=== PATIENT | male | born 1985 | race Caucasian/White ===

== ENCOUNTER 2022-07-28 16:17 | Emergency (ER) | payer OTHER ==
[~2022-07-28] VITALS: Ht 172.7 cm; Wt 76.7 kg
--- NOTE | 2022-07-28 16:25 | NUR ---
To ER bed 7, [id number] from rehab for body spasms, delirium tremens. widrawal from heroin last drug use 7 days ago, aaox3, breathing even and non labored, connected to monitor
--- NOTE | 2022-07-28 16:48 | NUR ---
DR FUENTES AT BEDSIDE FOR EVAL
[2022-07-28] MEDS ORDERED: LORAZEPAM 1 MG TABLET PO ONE (17:00)
[2022-07-28] MEDS ORDERED: LORAZEPAM 0.5 MG TABLET ONE (17:15)
[2022-07-28 17:27] LABS: BASOPHILS % (AUTO) 0.4 % (0.0-2.0); EOSINOPHILS % (AUTO) 2.1 % (0.0-6.0); HEMATOCRIT 39 % (39-51); HEMOGLOBIN 12.1 g/dL (13.5-17.5); LYMPHOCYTES # (AUTO) 3.5 K/uL (0.8-4.8); LYMPHOCYTES % (AUTO) 39.5 % (20.0-44.0); MEAN CORPUSCULAR HGB CONC 31 g/dl (31.0-36.0); MEAN CORPUSCULAR VOLUME 68 fL (80-96); MONOCYTES # (AUTO) 0.8 K/uL (0.1-1.30); MONOCYTES % (AUTO) 9.3 % (2.0-12.0); NEUTROPHILS # (AUTO) 4.3 K/uL (1.8-8.9); NEUTROPHILS % (AUTO) 48.7 % (43.0-81.0); PLATELET COUNT (AUTO) 413 K/uL (150-450); RED BLOOD CELL COUNT(AUTO) 5.77 MIL/uL (4.5-6.0); WHITE BLOOD COUNT (AUTO) 8.8 K/uL (4.3-11.0)
[2022-07-28 17:56] LABS: CALCIUM, SERUM 8.7 mg/dL (8.5-10.1); CREATININE 1.2 mg/dL (0.6-1.3); POTASSIUM 3.9 mmol/L (3.5-5.1)
[2022-07-28 19:38] VITALS: BP 129/68
--- NOTE | 2022-07-28 19:38 | NUR ---
Patient discharged to home in stable condition. Written and verbal after care instructions given. Patient verbalizes understanding of instruction.
[2022-07-28 19:48] LABS: BAND % (MANUAL) 1 % (0.0-5.0); LYMPHOCYTES % (MANUAL) 33 % (16-48); MONOCYTES % (MANUAL) 7 % (0-11.0); NEUTROPHILS % (MANUAL) 59 (42-76)
== END 2022-07-28 19:38 | disposition home or self-care (01) ==
LOC: ER 16:57
DX: F13.20 Sedative, hypnotic or anxiolytic dependence, uncomplicated (principal)
CPT/HCPCS: 36415; 80048-TC; 85025-TC

== ENCOUNTER 2022-07-29 11:26 | Emergency (ER) | payer OTHER ==
[~2022-07-29] VITALS: Ht 172.7 cm; Wt 74.8 kg
[2022-07-29 11:47] VITALS: BP 139/83
--- NOTE | 2022-07-29 12:35 | NUR ---
seen and examined by dr harvey. medically cleared. discharge in stable condition.
== END 2022-07-29 12:42 | disposition home or self-care (01) ==
LOC: ER 11:30
DX: R09.89 Other specified symptoms and signs involving the circulatory and respiratory systems (principal)
CPT/HCPCS: 70360-TC